=== PATIENT | male | born 1965 | race Caucasian/White ===

== ENCOUNTER 2017-05-14 18:54 | Emergency (ER) | payer OTHER ==
[2017-05-14 19:45] LABS: BASOPHIL 0.4 % (0-2); EOSINOPHIL 0.9 % (0-5); HCT 44.2 % (42.0-52.0); HGB 15.7 g/dl (13.2-18.0); LYMPHOCYTE 19.9 % (15-48); MCH 31.3 pg (25.0-31.0); MCHC 35.5 g/dL (32.0-36.0); MONOCYTE 13.5 % (0-12); MPV 11.3 fL (6.0-9.5); NEUTROPHIL 65.3 % (41-80); PLT 150 K/uL (150-400); RBC 5.02 M/uL (4.70-6.00); RDW 13.4 % (11.5-14.0); WBC 5.5 K/uL (4.0-10.5)
[2017-05-14 19:56] LABS: ALBUMIN 4.3 g/dL (3.5-5.0); BILIRUBIN - TOTAL 0.4 mg/dL (0.1-1.0); CREATININE 1.1 mg/dL (0.7-1.2); GLOBULIN (CALCULATION) 2.7 g/dL (2.2-4.2); POTASSIUM 3.7 mmol/L (3.5-5.1)
[2017-05-14 19:57] LABS: TROPONIN T < 0.010 ng/mL
[2017-05-14 20:03] LABS: PRO-BNP 291 pg/mL (0-125)
[2017-05-14 20:04] LABS: LACTIC ACID 1.9 mmol/L (0.5-2.2)
[2017-05-14 20:32] LABS: BILIRUBIN NEGATIVE (NEGATIVE); BLOOD NEGATIVE Ery/uL (NEGATIVE); CLARITY CLEAR (CLEAR); COLOR YELLOW (YELLOW); GLUCOSE (U) NORMAL (NORMAL); KETONE (U) TRACE mg/dL (NEGATIVE); LEUKOCYTES NEGATIVE Leu/uL (NEGATIVE); NITRITE NEGATIVE (NEGATIVE); PROTEIN 1+ mg/dL (NEGATIVE); SPECIFIC GRAVITY 1.025 (1.001-1.030); UROBILINOGEN 0.2 mg/dL (0.2-1.0)
== END 2017-05-14 23:03 | disposition home or self-care (01) ==
LOC: FER 18:54
PROVIDERS: Emergency Medicine Emergency Medical Services
DX: J20.9 Acute bronchitis, unspecified (principal); M94.0 Chondrocostal junction syndrome [Tietze]; Z88.5 Allergy status to narcotic agent
CPT/HCPCS: 36415; 71275; 80053; 81003; 82150; 83605; 83690; 83880; 84484; 85025; 85379; J1885; J2405; Q9967